=== PATIENT | female | born 1940 | race Asian ===

== ENCOUNTER 2017-01-12 22:30 | Emergency (ER) | payer MEDICARE ==
[~2017-01-12] VITALS: Ht 144.8 cm; Wt 58.0 kg
[2017-01-12 23:06] VITALS: BP 105/56; PULSE 72; RESP 20; TEMP 97.7
[2017-01-12] MEDS ORDERED: TIMO0.5S30 EACH EYE (23:35)
[2017-01-12] MEDS ORDERED: LEVO100T5 PO (23:35)
[2017-01-12] MEDS ORDERED: METF500T PO (23:35)
[2017-01-12] MEDS ORDERED: LOSA25TA PO (23:35)
[2017-01-12] MEDS ORDERED: CALC1TAB87 PO (23:35)
[2017-01-12 23:59] LABS: BICARBONATE 28.8 MEQ/L (21.0-32.0); CALCIUM 8.4 MG/DL (8.5-10.1)
[2017-01-13 00:03] LABS: CREATININE 0.98 MG/DL (0.50-1.00)
--- NOTE | 2017-01-13 00:04 | PD ---
HPI Chief Complaint: Musculoskeletal Complaint Time Seen by Provider: 23:20 Travel History International Travel<30 days: No Contact w/Intl Traveler<30days: No Traveled to known affect area: No History of Present Illness HPI 77-year-old female who presents to emergency room complaints of right lower extremity pain and cramping. Patient reports that she had just come from dinner and began to have right calf cramping pain. Patient denies any history of PE or DVT in the past, denies any chest pain or shortness of breath. Patient reports that she feels as if she may pulled a muscle to her calf PFS Past Medical History Cardiovascular Problems: Yes (HTN) Diabetes: Yes Patient Takes Glucophage: Yes Diminished Hearing: No Glaucoma: Yes Tetanus Vaccination: Unknown ?: Not Past Surgical History Appendectomy: Yes () Endocrine Surgery: Yes (thyroidectomy) Mastectomy: Yes (lt) Social History Alcohol Use: Yes (social) Tobacco Use: No Substance Use: No Allergies-Medications (Allergen,Severity, Reaction): Coded Allergies: No Known Allergies (Verified Allergy, Unknown, 01/12/17) Reported Meds & Prescriptions Reported Meds & Active Scripts Active Reported Timolol Opth Drops 0.5 % Soln 1 Drop EACH EYE BID Calcium 600 with Vitamin D (Calcium Carbonate-Cholecalciferol) 600-400 mg-Unit Tab 1 Tab PO DAILY Losartan (Losartan Potassium) 25 Mg Tab 25 Mg PO DAILY Metformin (Metformin HCl) 500 Mg Tab 500 Mg PO DAILY With a meal Levothyroxine (Levothyroxine Sodium) 100 Mcg Tab 100 Mcg PO DAILY Review of Systems General / Constitutional: No: Fever Eyes: No: Visual changes HENT: No: Headaches Cardiovascular: No: Chest Pain or Discomfort Respiratory: No: Shortness of Breath Gastrointestinal: No: Abdominal Pain Genitourinary: No: Dysuria Musculoskeletal: Positive: Myalgias, No: Pain Skin: No Rash Neurologic: No: Weakness Psychiatric: No: Depression Endocrine: No: Polydipsia Hematologic/Lymphatic: No: Easy Bruising Physical Exam Narrative GENERAL: moderate distress SKIN: Focused skin assessment warm/dry. HEAD: Atraumatic. Normocephalic. NECK: Trachea midline. No JVD. CARDIOVASCULAR: Regular rate and rhythm. No murmur appreciated. RESPIRATORY: No accessory muscle use. Clear to auscultation. Breath sounds equal bilaterally. GASTROINTESTINAL: Abdomen soft, non-tender, nondistended. Hepatic and splenic margins not palpable. MUSCULOSKELETAL: No obvious deformities. No clubbing. No cyanosis. No edema. Patient with RLE calf tenderness with no swelling or erythema NEUROLOGICAL: Awake and alert. No obvious cranial nerve deficits. Motor grossly within normal limits. Normal speech. PSYCHIATRIC: Appropriate mood and affect; insight and judgment normal. Data Data Last Documented VS Vital Signs Date Time Temp Pulse Resp B/P (MAP) Pulse Ox O2 Delivery O2 Flow Rate FiO2 01/12/17 23:06 97.7 72 20 105/56 (72) Orders Orders Basic Metabolic Panel (Bmp) (01/12/17 23:35) Us Leg Venous Doppler (01/13/17 ) Labs Laboratory Tests Test 01/12/17 23:40 Blood Urea Nitrogen 21 MG/DL Creatinine 0.98 MG/DL Random Glucose 137 MG/DL Calcium Level 8.4 MG/DL Sodium Level 134 MEQ/L Potassium Level 3.9 MEQ/L Chloride Level 98 MEQ/L Carbon Dioxide Level 28.8 MEQ/L Anion Gap 7 MEQ/L Estimat Glomerular Filtration Rate 55 ML/MIN MDM Medical Decision Making Medical Screen Exam Complete: Yes Emergency Medical Condition: Yes Medical Record Reviewed: Yes Interpretation(s) Vital Signs Date Time Temp Pulse Resp B/P (MAP) Pulse Ox O2 Delivery O2 Flow Rate FiO2 01/12/17 23:06 97.7 72 20 105/56 (72) Differential Diagnosis Muscle strain, electrolyte abnormality, DVT Narrative Course An ultrasound was ordered to rule out DVT, BMP ordered to rule out electrolyte abnormalities CBC & BMP Diagram 01/12/17 23:40 Calcium Level 8.4 L Last Impressions Lower Extremity Ultrasound 01/13/17 0000 Signed Impressions: Service Date/Time: Friday, January 13, 2017 00:17 - CONCLUSION: No venous thrombosis of the right lower extremity. Anderson Collins MD Patient feeling much better at this time, Patient with complete resolution of symptoms. I reviewed all labs and studies with patient in detail. Discussed need for repeat us in 1 week if symptoms persist. She will follow up with her pcp and will return to ER as needed Diagnosis Primary Impression: Calf cramp Patient Instructions: General Instructions Additional Instructions: Please provide patient with a copy of their lab work and studies at discharge* * Please follow up with your primary care doctor in 2-3 days Return to the ER if symptoms worsen or progress Return to the ER as needed Please have the ultrasound repeated in 1 week if symptoms persist Disposition: 01 DISCHARGE HOME Condition: Stable Ame Mcintosh DO Jan 13, 2017 00:04
--- NOTE | 2017-01-13 00:41 | RADRPT ---
EXAM DATE/TIME: 01/13/2017 00:17 [facility] COMPARISON: No previous studies available for comparison. INDICATIONS : Right leg pain. MEDICAL HISTORY : Hypertension. Diabetes. Glaucoma. SURGICAL HISTORY : Thyroidectomy. Appendectomy. Masectomy. Chemotherapy. ENCOUNTER: Initial ACUITY: 1 day PAIN SCORE: 4/10 LOCATION: Right leg. TECHNIQUE: Venous ultrasound of the leg was performed from the inguinal ligament to the proximal calf. Real-salo e, color Doppler and spectral tracing, compression and augmentation techniques were used. FINDINGS: There is normal compressibility of the deep venous system from the inguinal region to the proximal ca lf. No echogenic clot is seen in the lumen of the common femoral, femoral, popliteal, and posterior tibial veins. There is a normal response of the venous system to proximal and distal augmentation an d respiration. CONCLUSION: No venous thrombosis of the right lower extremity. Anderson Collins MD on January 13, 2017 at 0:39 Board Certified Radiologist. This report was verified electronically.
== END 2017-01-13 01:24 | disposition home or self-care (01) ==
LOC: PHED 22:30
DX: R25.2 Cramp and spasm (principal); E11.9 Type 2 diabetes mellitus without complications; I10 Essential (primary) hypertension; Z79.84 Long term (current) use of oral hypoglycemic drugs; Z86.69 Personal history of other diseases of the nervous system and sense organs
CPT/HCPCS: 80048; 93971